=== PATIENT | male | born 1975 | race Caucasian/White ===

== ENCOUNTER 2016-09-13 18:20 | Emergency (ER) | payer BC ==
[~2016-09-13] VITALS: Ht 175.3 cm; Wt 80.0 kg
[~2016-09-13 18:20] MED LIST: AMX500 PO; ASPEC325 PO; ATEN-173 PO; GLCSR500 PO; HMLI SC; INSDGI SC; LISI5TAB3 PO
[2016-09-13 18:29] VITALS: TEMP 37.1; Ht 175.3 cm; Wt 80.0 kg
[2016-09-13] MEDS ORDERED: SODIUM CHLORIDE 0.9% 1000ML 1,000 ML IV STA (18:37)
[2016-09-13] MEDS ORDERED: GLC500 PO (18:59)
[2016-09-13 19:13] LABS: BASO % 0.2 %; BASO ABS # 0.02 K/uL (0-0.2); COMPLETE YES; EOS % 0.6 %; IG% 0.4 %; LYMPH % 9.7 %; LYMPH ABS # 1.12 K/uL (1.2-3.4); MEAN CELL VOLUME 88.5 fL (80-100); MEAN CORPUSCULAR HEMOGLOBIN 29.2 pg (25-34); MEAN PLATELET VOLUME 11.9 fL (7.4-10.4); NEUT % 81.1 %; PLATELET COUNT 216 K/uL (130-400); RED BLOOD COUNT 4.97 M/uL (4.7-6.1); WHITE BLOOD COUNT 11.59 K/uL (4.8-10.8)
[2016-09-13 19:22] LABS: ISTAT CREATININE 0.9 mg/dl (0.6-1.3); ISTAT HEMOGLOBIN 15.6 g/dl (14.0-18.0); ISTAT IONIZED CALCIUM 1.09 mmol/l (1.12-1.32)
[2016-09-13 19:28] LABS: INR 3.9 (0.9-1.1); PARTIAL THROMBOPLASTIN RATIO 1.7; PROTHROMBIN TIME (PATIENT) 44.5 SECONDS (9.0-12.0)
[2016-09-13 19:40] LABS: URINE APPEARANCE CLEAR (CLEAR); URINE BILIRUBIN NEG (NEG); URINE COLOR YELLOW; URINE EPITHELIAL CELL AUTO 0-5 /lpf (0-5); URINE NITRITE NEG (NEG); URINE SPECIFIC GRAVITY 1.015 (1.000-1.030); UROBILINOGEN NEG (NEG)
[2016-09-13 19:45] LABS: MANUAL MICROSCOPIC REQUIRED? NO; REVIEW REQ? NO
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
[2016-09-13] MEDS ORDERED: OPTIRAY 320 IV PRN (20:15)
[2016-09-13] MEDS ORDERED: HYDROmorphone INJ 0.5 MG/0.5 ML SYR IV STA (20:30)
[2016-09-13] MEDS ORDERED: ONDANSETRON INJ 2 MG/ML 2 ML VIAL IV STA (20:30)
[2016-09-13] MEDS ORDERED: OXYCODONE IR HOME PACK PO ONE (20:30)
[2016-09-13] MEDS ORDERED: OXYC1TAB3 PO (20:33)
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
[2016-09-13 21:08] VITALS: BP 126/75; PULSE 84; O2SAT 98
== END 2016-09-13 21:09 | disposition home or self-care (01) ==
LOC: C.EDB 18:22 → C.EDD 21:09
DX: S22.32XA Fracture of one rib, left side, initial encounter for closed fracture (principal); T14.8 Other injury of unspecified body region; R79.1 Abnormal coagulation profile; S32.009A Unspecified fracture of unspecified lumbar vertebra, initial encounter for closed fracture; V86.99XA Unspecified occupant of other special all-terrain or other off-road motor vehicle injured in nontraffic accident, initial encounter; E11.9 Type 2 diabetes mellitus without complications; Z83.3 Family history of diabetes mellitus; Z82.49 Family history of ischemic heart disease and other diseases of the circulatory system; Z87.891 Personal history of nicotine dependence; Z79.4 Long term (current) use of insulin